=== PATIENT | female | born 1995 | race Two or more races ===

== ENCOUNTER 2024-11-05 06:25 | Day surgery (SDC) | payer OTHER, SELFPAY ==
[2024-11-04 09:57] VITALS: BMI 31.7
[2024-11-04 11:58] LABS: Basophils # (Auto) 0.0 Thou/mm3 (0.0-0.2); Basophils % (Auto) 1 % (0-2.5); Eosinophils # (Auto) 0.1 Thou/mm3 (0.0-0.5); Eosinophils % (Auto) 2 % (0-10); Hematocrit 39.7 % (36.0-46.0); Hemoglobin 13.0 g/dL (12.0-16.0); Immature Granulocytes Auto 0.01 Thou/mm3 (0.00-0.00); Lymphocytes # (Auto) 3.7 Thou/mm3 (1.0-4.8); Lymphocytes % (Auto) 50 % (10-50); Mean Corpuscular HGB Conc 32.7 g/dl (31.0-37.0); Mean Corpuscular Hemoglobin 30.8 pg (25.0-35.0); Mean Corpuscular Volume 94 fL (80-100); Monocytes # (Auto) 0.6 Thou/mm3 (0.0-0.8); Monocytes % (Auto) 8 % (0-12); Neutrophils # (Auto) 2.9 Thou/mm3 (1.8-7.7); Neutrophils % (Auto) 40 % (37-80); Nucleated Red Blood Cell # 0.00 Thou/mm3 (0.00-0.00); Nucleated Red Blood Cell % 0 /100 WBC (0); Platelet Count 329 Thou/mm3 (140-440); RDW Standard Deviation 42.1 fL (36.4-46.3); Red Blood Count 4.22 Miln/mm3 (4.00-5.20); White Blood Count 7.3 Thou/mm3 (3.6-11.0)
[2024-11-04 12:06] LABS: INR 1.0 (0.9-1.3); Partial Thromboplastin Time 28.7 Seconds (22.0-36.0); Prothrombin Time 11.4 Seconds (9.0-12.2)
[2024-11-04 13:40] LABS: Alanine Aminotransferase 121 U/L (10-49); Albumin, Serum 4.7 gm/dL (3.5-5.0); Albumin/Globulin Ratio 1.7 (1.2-2.2); Alkaline Phosphatase 86 U/L (46-116); Anion Gap 12 (7-16); Aspartate Amino Transferase 49 U/L (0-34); BUN/Creatinine Ratio 12 Ratio (12-20); Beta HCG,Quantitative 1 mIU/mL (<5.0); Bilirubin,Total 0.6 mg/dL (0.3-1.2); Blood Urea Nitrogen 7 mg/dL (9-23); Calcium 9.5 mg/dL (8.3-10.6); Calcium (Corrected) 9.5 mg/dL (8.5-10.1); Carbon Dioxide 22.2 mMol/L (20.0-31.0); Chloride 107 mMol/L (98-107); Creatinine (Component) 0.6 mg/dL (0.6-1.3); Estimated Creatinine Clearance 142.4 mL/min (>60); Globulin 2.8 gm/dL (2.3-3.5); Glucose 82 mg/dL (74-106); Osmolality,Calculated 278 (275-295); Potassium 3.6 mMol/L (3.4-5.1); Sodium 141 mMol/L (136-145); Total Protein 7.5 gm/dL (5.7-8.2); eGFR > 60 See Note
[2024-11-05] VITALS (8 sets, daily range): BP systolic 104–129; BP diastolic 59–90; PULSE 70–98; RESP 12–20; TEMP 36.5–37.1; O2SAT 93–98; BMI 27.0
[2024-11-05] MEDS: RINGERS LACTATED 1000 ML 1,000 ML 30 ML IV (06:54)
--- NOTE | 2024-11-05 07:30 | ESHP_ITS ---
RE: KAMILLA BLEDSOE : 1995 DATE OF ADMISSION: 11/05/2024 DATE OF SURGERY: 11/05/2024 This is a 29-year-old, 3, para 3 with a persistent right adnexal cyst who presents for surgical removal. She has had right lower quadrant pain. The cyst has been persistent for several months. ALLERGIES: IBUPROFEN. PAST MEDICAL HISTORY: Ulcerative colitis, delivery, sterilization, and depression MEDICATIONS: Humira injection weekly. SOCIAL HISTORY: She is . She denies any alcohol drug use or smoking. FAMILY HISTORY: Migraine headaches in paternal grandmother. PAST SURGICAL HISTORY: delivery in 2012 and 2020, cholecystectomy, and bilateral salpingectomy. REVIEW OF SYSTEMS: Denies any chest pain, palpitations, cough, fever, shortness of breath or lower extremity pain. PHYSICAL EXAMINATION: VITAL SIGNS: Blood pressure 128/72, heart rate 84, respirations 16, temperature is 98.4. HEENT: Oropharynx and sclerae are clear. LUNGS: Clear to auscultation bilaterally. HEART: Regular rate and rhythm. ABDOMEN: Old Pfannenstiel scar noted. Old trocar scars noted. EXTREMITIES: Nontender. SKIN: No gross rashes or lesions. NEUROLOGIC: No focal deficit. ASSESSMENT AND PLAN: Right adnexal cyst. PLAN: Diagnostic laparoscopy, right ovarian cystectomy. Informed consent was obtained. The patient remained aware of the risks, complications, alternatives, and benefits of the proposed procedure and she agrees. She is aware of the risk of injury to bowel or bladder, uterus, ureters, adjacent organs, pulmonary embolism, deep vein thrombosis, injury to the vessels of the abdominal wall, hematoma, abscess, wound infection, wound dehiscence, pelvic infection, reoperation to repair injury to internal organs, anesthesia complications, the possibility that a laparotomy needs to be performed to complete the procedure or control bleeding, and the possibility the procedure is not able to be completed due to severe adhesions or technical difficulties. DT: 16:30:56 TT: 17:45:00 Ref: [id number] - TID: [id number]
--- NOTE | 2024-11-05 09:45 | SUR.PHASEI ---
0945: Pt. AAOx4, vitals stable, breathing unlabored, complaint of pain, will give pain medicine, no complaint of nausea, x3 dermabond sites to ABD CDI, peripad in place CDI, no active bleed noted, report received from Myah RICHARDS and MD Neely.
--- NOTE | 2024-11-05 09:46 | PD.GYNPROC ---
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 She was placed in the supine position on the operating room table. She underwent induction of general anesthesia. She was placed in the dorsal lithotomy position. Using sterile technique a red rubber catheter was used to drain the bladder. The patient was prepped and draped in usual sterile fashion. A timeout was performed. A speculum was placed in the vagina. A tenaculum was placed on the anterior lip of the cervix. An acorn uterine manipulator was placed into the endocervix and attached to the tenaculum. Attention was then turned to the abdomen where the physician regowned and gloved. A 5 mm incision was made in the umbilical fold. With tenting up of the abdomen a Veress needle was inserted. Using saline intra-abdominal placement was confirmed. The abdomen was inflated with carbon dioxide to 12 mmHg. The Veress needle was then removed. The Roca trocar with the laparoscope was carefully inserted through the umbilical incision and the peritoneal cavity entered. The patient was placed in slight Trendelenburg. A 12 mm incision was made in the region of the symphysis pubis in the midline approximately 2 cm above the symphysis pubis. Through this 12 mm incision a 12 mm trocar was inserted under direct visualization of the laparoscope. Using the Trevizo Geck grasper and the uterine manipulator the right ovarian cyst was visualized in the posterior cul-de-sac and was grasped and elevated and was positioned so that it was free of contact with the adjacent organs. Using the 1136 harmonic scalpel the right salpingectomy was performed. Hemostasis was achieved. The suction managed care manager was utilized to remove the remaining peritoneal and blood from the cul-de-sac. There was no bleeding at the site of the remaining right ovary. The right ovarian cyst was placed in an Endopouch and removed with the assistance of a trocar through the suprapubic incision. The pelvis was visualized and found to be hemostatic. The fascial edges of the suprapubic incision was closed using the Vazquez Bonilla needle under direct visualization of the laparoscope using 0 Vicryl suture. The trocars were removed from the abdomen after carbon oxide was removed from the peritoneal cavity. The incisions were closed with 4-0 Monocryl and covered with Dermabond after they were each infiltrated with Marcaine half percent with epinephrine. Attention was then turned to the vagina where the uterine manipulator was removed and there was no bleeding at the end of the procedure. Specimen: other (Right ovarian cyst) Estimated blood loss (ml): 50 Findings: Right ovarian cyst containing serous fluid 8 x 9 cm consistent with serous cystadenoma grossly Absent right and left fallopian tubes Uterus grossly within normal limits Left ovary grossly within normal limits. No pelvic adhesions No evidence of endometriosis Complications: none Surgical staff Operation Date: 11/05/24 08:45 Case Staff Anesthesiologist: Dustin Neely RN First Assistant: Rosalinda Mas Diagnosis Discharge Diagnosis (1) Right ovarian cyst: Status: Acute Problem List Completed Was Problem List Reviewed/Reconciled?: Yes
[2024-11-05] MEDS: fentaNYL CIT INJ 50 mCg/ML AMP 2ML 25 MCG IVP ×2 (09:52→09:58)
[2024-11-05] MEDS: ONDANSETRON INJ 2 MG/ML INJ 2 ML 4 MG IVP (10:27)
--- NOTE | 2024-11-05 10:45 | SUR.PHASEII ---
1045: Pt. AAOx4, vitals stable, breathing unlabored, no complaint of pain or nausea, x3 dermabond sites to ABD CDI, no active bleed noted, peripad in place, CDI, pt. tolerated sips of water well, pt. ambulated to wheelchair with steady gait and no assist, no complications. Gave discharge instructions to the pt. and her ride, both verbalized understanding and had no further questions. PT. left with all personal belongings.
== END 2024-11-05 10:45 | disposition home or self-care (01) ==
PROVIDERS: PCP Internal Medicine; Referring Provider Specialist; Visit Provider Specialist
PROC: (CPT 58662; principal; 2024-11-05 08:30)
DX: N83.11 Corpus luteum cyst of right ovary (principal)
CPT/HCPCS: 58662; 58661; 36415; 80053; 84702; 85025; 85610; 85730; 86850; 86900; 86901; A4217; A4649; J0131; J0690; J1100; J2250; J2405; J2704; J3010; J3490; J7120; Q9968; A9270